=== PATIENT | female | born 1960 | race Caucasian/White ===

== ENCOUNTER 2018-04-04 17:43 | Emergency (ER) | payer MEDICAID ==
[~2018-04-04] VITALS: Ht 157.5 cm; Wt 105.2 kg
[~2018-04-04 17:43] MED LIST: CYCL-259 PO; ENAL20TA PO; HYDR25TA6 PO; INSU100C SQ-INSULIN; INSU100V8 SQ; LEVO112T4 PO; LORA10TA3 PO; OMEP20CA9 PO
[2018-04-04 17:46] VITALS: BP 167/78
[2018-04-04 18:11] LABS: BASOPHILS # (AUTO) 0.07 x10^3/uL (0-0.1); BASOPHILS % (AUTO) 1 % (0-1); EOSINOPHILS % (AUTO) 7 % (1-7); LYMPHOCYTES # (AUTO) 1.51 x10^3/uL (1-3.4); LYMPHOCYTES % (AUTO) 20 % (22-44); MD NO; MEAN CORPUSCULAR HEMOGLOBIN 31.3 pg (27.0-34.8); MEAN CORPUSCULAR VOLUME 92.2 fL (80-100); MEAN PLATELET VOLUME 7.2 fL (7.4-10.4); MONOCYTES # (AUTO) 0.88 x10^3/uL (0.2-0.8); MONOCYTES % (AUTO) 12 % (2-9); NEUTROPHILS # (AUTO) 4.56 x10^3/uL (1.8-6.8); NEUTROPHILS % (AUTO) 61 % (42-75); PLATELET COUNT 186 x10^3/uL (130-400); RED BLOOD COUNT 4.91 x10^6/uL (3.82-5.3); RED CELL DISTRIBUTION WIDTH 15.1 % (9.6-15.2)
[2018-04-04 18:23] LABS: ALBUMIN 3.4 g/dL (3.4-5.0); ANION GAP 7 mmol/L (5-15); CALCIUM 8.9 mg/dL (8.5-10.1); CHLORIDE 95 mmol/L (98-107); CREATININE 1.34 mg/dL (0.55-1.02)
[2018-04-04 19:15] LABS: ALBUMIN 3.5 g/dL (3.4-5.0); BILIRUBIN, DIRECT 0.2 mg/dL (0.1-0.2)
[2018-04-04 19:18] LABS: BILIRUBIN,INDIRECT 0.6 mg/dL (0.0-2.0); BILIRUBIN,TOTAL 0.8 mg/dL (0.2-1.0); TOTAL PROTEIN 7.5 g/dL (6.4-8.2)
[2018-04-04] MEDS ORDERED: LIDODERM 5% PATCH TD ONE (19:30)
== END 2018-04-04 19:29 | disposition home or self-care (01) ==
LOC: ED 19:23
DX: M79.662 Pain in left lower leg (principal); L50.1 Idiopathic urticaria; E87.1 Hypo-osmolality and hyponatremia; J44.9 Chronic obstructive pulmonary disease, unspecified; E11.9 Type 2 diabetes mellitus without complications; E03.9 Hypothyroidism, unspecified; F17.200 Nicotine dependence, unspecified, uncomplicated; Z88.0 Allergy status to penicillin; Z90.710 Acquired absence of both cervix and uterus
CPT/HCPCS: 36415; 80048; 80076; 82040; 83880; 85025; 99285

== ENCOUNTER 2018-07-17 11:21 | Emergency (ER) | payer MEDICAID ==
[~2018-07-17] VITALS: Ht 157.5 cm; Wt 69.5 kg
[2018-07-17] MEDS ORDERED: PHENAZOPYRIDINE 200 MG TABLET PO ONE (13:00)
[2018-07-17] MEDS ORDERED: PHENAZOPYRIDINE 200 MG TABLET ONE (13:11)
[2018-07-17 13:29] LABS: MICROSCOPIC AUTO
[2018-07-17 13:30] LABS: CULTURE INDICATED? YES
[2018-07-17 14:07] VITALS: BP 148/72
== END 2018-07-17 14:09 | disposition home or self-care (01) ==
LOC: ED 13:27
DX: N30.01 Acute cystitis with hematuria (principal); J44.9 Chronic obstructive pulmonary disease, unspecified; I12.9 Hypertensive chronic kidney disease with stage 1 through stage 4 chronic kidney disease, or unspecified chronic kidney disease; N18.9 Chronic kidney disease, unspecified; E11.22 Type 2 diabetes mellitus with diabetic chronic kidney disease
CPT/HCPCS: 81001; 87077; 87086; 87186; 99283

== ENCOUNTER 2018-10-28 21:31 | Emergency (ER) | payer MEDICAID ==
[~2018-10-28] VITALS: Ht 157.5 cm; Wt 104.7 kg
[~2018-10-28 21:31] MED LIST changes: +LORA-247 PO; -LORA10TA3 PO
[2018-10-28 22:14] LABS: MICROSCOPIC AUTO
[2018-10-28 22:19] LABS: CULTURE INDICATED? YES
--- NOTE | 2018-10-28 23:34 | NUR ---
BLOATED X 3 DAYS, SWELLING IN RIGHT LOWER EXTREMITY X 6 MONTHS. PAIN IN BILAT FLANKS. VSS STABLE
[2018-10-28] MEDS ORDERED: GABA300C10 PO (23:46)
[2018-10-28] MEDS ORDERED: TIOT18CA INH (23:46)
[2018-10-28] MEDS ORDERED: OXYC-307 PO (23:46)
[2018-10-28] MEDS ORDERED: METH500T7 PO (23:46)
[2018-10-28] MEDS ORDERED: MOME13HF2 PO (23:46)
[2018-10-28] MEDS ORDERED: AMLO10TA8 PO (23:46)
[2018-10-28] MEDS ORDERED: ATOR10TA9 PO (23:46)
[2018-10-29 00:29] LABS: BASOPHILS # (AUTO) 0.03 x10^3/uL (0-0.1); BASOPHILS % (AUTO) 0 % (0-1); EOSINOPHILS # (AUTO) 0.43 x10^3/uL (0-0.4); EOSINOPHILS % (AUTO) 7 % (1-7); LYMPHOCYTES % (AUTO) 19 % (22-44); MD NO; MEAN CORPUSCULAR HEMOGLOBIN 31.7 pg (27.0-34.8); MEAN CORPUSCULAR HGB CONC 34.3 g/dL (32.4-35.8); MEAN CORPUSCULAR VOLUME 92.6 fL (80-100); MEAN PLATELET VOLUME 6.3 fL (7.4-10.4); MONOCYTES # (AUTO) 0.51 x10^3/uL (0.2-0.8); MONOCYTES % (AUTO) 8 % (2-9); NEUTROPHILS # (AUTO) 4.42 x10^3/uL (1.8-6.8); NEUTROPHILS % (AUTO) 66 % (42-75); PLATELET COUNT 184 x10^3/uL (130-400); RED BLOOD COUNT 4.42 x10^6/uL (3.82-5.3); RED CELL DISTRIBUTION WIDTH 13.6 % (9.6-15.2)
[2018-10-29 00:40] LABS: INTERNATIONAL NORMALIZED RATIO 0.92 (0.93-1.1); PROTHROMBIN TIME 9.7 Seconds (9.6-11.5)
[2018-10-29 00:41] LABS: ALBUMIN 3.3 g/dL (3.4-5.0); ANION GAP 8 mmol/L (5-15); CALCIUM 9.1 mg/dL (8.5-10.1); CHLORIDE 93 mmol/L (98-107); CREATININE 1.11 mg/dL (0.55-1.02)
[2018-10-29 00:46] LABS: ALANINE AMINOTRANSFERASE 19 U/L (12-78); ALKALINE PHOSPHATASE 69 U/L (45-117); BILIRUBIN,TOTAL 0.4 mg/dL (0.2-1.0); TOTAL PROTEIN 6.8 g/dL (6.4-8.2)
[2018-10-29] MEDS ORDERED: CEFDINIR 300 MG CAPSULE PO ONE (01:00)
[2018-10-29] MEDS ORDERED: CEFDINIR 300 MG CAPSULE ONE ×2 (01:29→01:34)
[2018-10-29 01:37] VITALS: BP 155/63
--- NOTE | 2018-10-29 01:40 | NUR ---
PT MEDICATED PER ORDERS. D/C INSTRUCTIONS, MEDS, & F/U APPT RV'WD WITH PT, SHE VERBALIZES UNDERSTANDING. RX GIVEN X2. PT AMBULATED OUT OF ED WITH WITHOUT DIFFICULTY.
== END 2018-10-29 01:43 | disposition home or self-care (01) ==
LOC: ED 23:46
DX: N39.0 Urinary tract infection, site not specified (principal); E87.1 Hypo-osmolality and hyponatremia; J44.9 Chronic obstructive pulmonary disease, unspecified; E11.22 Type 2 diabetes mellitus with diabetic chronic kidney disease; I12.9 Hypertensive chronic kidney disease with stage 1 through stage 4 chronic kidney disease, or unspecified chronic kidney disease; N18.3 Chronic kidney disease, stage 3 (moderate); F17.210 Nicotine dependence, cigarettes, uncomplicated; Z90.710 Acquired absence of both cervix and uterus
CPT/HCPCS: 36415; 74022; 80053; 80307; 81001; 83690; 83880; 85025; 85610; 85730; 87077; 87086; 87186; 93970; 99284

== ENCOUNTER 2020-09-25 16:59 | Inpatient (IN) | payer MEDICAID ==
[~2020-09-25] VITALS: Ht 157.5 cm; Wt 90.5 kg
[~2020-09-25 16:59] MED LIST changes: +AMLO-211 PO; +ATOR10TA9 PO; -CYCL-259 PO; +CYCL10TA2 PO; -ENAL20TA PO; +ENAL20TA9 PO; +GABA300C10 PO; +METH-639 PO; +MOME13HF2 PO; +OXYC-380 PO; +TIOT18CA INH
--- NOTE | 2020-09-25 17:19 | NUR ---
Pt reports she was admitted to [facility] in May d/t abdnormal sodium levels. Pt reports that for the past few weeks she has been having symptoms similar to what she had in May prior to being admitted including nauseau, fatigue, and dizziness. Pt reports she drinks 1 cup of coffee per day, drinks alcohol a few times per week. Pt reports she can hardly walk d/t dizziness. Denies fevers, vomitting, diarrhea. MD at bedside. RN at bedside. Pt reports her kidney doctor put her on 40mg furosemide 2x/day and potassium daily. Pt reports she smokes 1 pack cigarrettes per day. Hx stage 3 kidney disease, type I diabetic, COPD (wears oxygen at night), back surgery, thyroidectomy, breast infections and surgeries, hysterectomy, bladder lift.
[2020-09-25] MEDS ORDERED: SODIUM CHLORIDE FLUSH 10ML SYR IVF ONE (17:30)
--- NOTE | 2020-09-25 18:01 | NUR ---
IV started, labs drawn.
[2020-09-25 18:07] LABS: BASOPHILS % (AUTO) 2 % (0-1); EOSINOPHILS % (AUTO) 4 % (1-7); LYMPHOCYTES % (AUTO) 16 % (22-44); MEAN CORPUSCULAR HEMOGLOBIN 31.3 pg (27.0-34.8); MEAN CORPUSCULAR HGB CONC 35.1 g/dL (32.4-35.8); MONOCYTES % (AUTO) 12 % (2-9); NEUTROPHILS % (AUTO) 67 % (42-75); PLATELET COUNT 269 x10^3/uL (130-400); RED BLOOD COUNT 4.84 x10^6/uL (3.82-5.3); RED CELL DISTRIBUTION WIDTH 13.5 % (9.6-15.2)
[2020-09-25 18:19] LABS: ALANINE AMINOTRANSFERASE 18 U/L (12-78); ALBUMIN 2.9 g/dL (3.4-5.0); ANION GAP 11 mmol/L (5-15); CALCIUM 8.6 mg/dL (8.5-10.1); CHLORIDE 90 mmol/L (98-107); CREATININE 1.12 mg/dL (0.55-1.02)
[2020-09-25 18:22] LABS: ALKALINE PHOSPHATASE 87 U/L (45-117); BILIRUBIN,TOTAL 0.3 mg/dL (0.2-1.0)
[2020-09-25 18:26] LABS: MD SCAN
--- NOTE | 2020-09-25 18:43 | NUR ---
Pt ambulating to bathroom in room, 1 person assist, still feels very dizzy.
--- NOTE | 2020-09-25 19:21 | NUR ---
UA sent to lab.
--- NOTE | 2020-09-25 19:44 | NUR ---
RN at bedside, updating pt on plan to admit pt.
[2020-09-25 19:45] LABS: MICROSCOPIC INDICATED
--- NOTE | 2020-09-25 19:55 | NUR ---
Diet order in- provided pt some dinner.
[2020-09-25] MEDS ORDERED: CEFTRIAXONE PMX 1GM/50ML 50 ML IV ONE (20:30)
[2020-09-25] MEDS ORDERED: CEFTRIAXONE PMX 1GM/50ML 50 ML ONE (20:55)
--- NOTE | 2020-09-25 20:58 | NUR ---
Provider confirms that blood cultures not needed. Rocephin started.
--- NOTE | 2020-09-25 21:18 | NUR ---
Report given to GREGG Rodriguez.
[2020-09-25] MEDS ORDERED: ALBUTEROL/IPRATROPIUM 2.5MG/0.5MG, 3 ML ONE (21:20)
--- NOTE | 2020-09-25 21:24 | NUR ---
Hospitalist at bedside.
--- NOTE | 2020-09-25 21:26 | NUR ---
TASK RN: DIONNE PROVIDED PER EMAR
[2020-09-25] MEDS ORDERED: ALBUTEROL/IPRATROPIUM 2.5MG/0.5MG, 3 ML NEB ONE (21:30)
[2020-09-25 22:19] VITALS: BP 133/70
[2020-09-25] MEDS ORDERED: ACETAMINOPHEN 325 MG TABLET PO PRN (22:30)
[2020-09-25] MEDS ORDERED: ONDANSETRON 2MG/ML, 2ML IVPush PRN (22:30)
[2020-09-25] MEDS ORDERED: MELATONIN 5 MG TABLET PO PRN (22:30)
[2020-09-25] MEDS ORDERED: hydrALAzine 20 MG/ML, 1ML IVPush PRN (22:30)
[2020-09-25] MEDS ORDERED: DOCUSATE 100 MG CAPSULE PO PRN (22:30)
[2020-09-25] MEDS ORDERED: MAGNESIUM SULFATE PMX 4GM/100M 100 ML IVPB ONE (22:30)
[2020-09-25] MEDS ORDERED: NICOTINE 21 MG/24 HR PATCH.TD24 TD ONE (22:30)
[2020-09-25] MEDS: HEPARIN 5,000 UNITS/ML, 1ML SQ SCH (23:06)
[2020-09-25] MEDS: SODIUM CHLORIDE 0.9% 1,000 ML IV SCH (23:07)
[2020-09-26 00:46] VITALS: BP 119/67
[2020-09-26 00:47] LABS: ANION GAP 9 mmol/L (5-15); CALCIUM 8.2 mg/dL (8.5-10.1); CHLORIDE 91 mmol/L (98-107); CREATININE 1.24 mg/dL (0.55-1.02)
[2020-09-26] MEDS: METHOCARBAMOL 500 MG TABLET PO SCH ×4 (01:19→20:39)
[2020-09-26] MEDS: ATORVASTATIN 10 MG TABLET PO SCH ×2 (01:19→20:39)
[2020-09-26] MEDS: GABAPENTIN 300 MG CAPSULE PO SCH ×4 (01:19→20:39)
[2020-09-26] MEDS: OXYcodone/APAP 10/325MG TABLET PO SCH ×5 (01:19→20:40)
[2020-09-26] MEDS ORDERED: DEXTROSE 50%, 50ML SYRINGE IVPush PRN (02:00)
[2020-09-26] MEDS ORDERED: GLUCAGON 1 MG IM PRN (02:00)
[2020-09-26] MEDS ORDERED: DEXTROSE 4 GM TAB.CHEW PO PRN (02:00)
[2020-09-26] MEDS: INSULIN LISPRO 100 UNITS/ML, PEN SQ-INSULIN SCH ×5 (03:05→20:48)
[2020-09-26 05:15] LABS: BASOPHILS % (AUTO) 1 % (0-1); EOSINOPHILS % (AUTO) 2 % (1-7); LYMPHOCYTES % (AUTO) 12 % (22-44); MEAN CORPUSCULAR HEMOGLOBIN 30.5 pg (27.0-34.8); MEAN PLATELET VOLUME 7.1 fL (7.4-10.4); MONOCYTES % (AUTO) 13 % (2-9); NEUTROPHILS % (AUTO) 72 % (42-75); PLATELET COUNT 219 x10^3/uL (130-400); RED CELL DISTRIBUTION WIDTH 13.5 % (9.6-15.2)
[2020-09-26 05:17] LABS: MD NO
[2020-09-26 05:27] LABS: ANION GAP 9 mmol/L (5-15); CALCIUM 7.9 mg/dL (8.5-10.1); CHLORIDE 93 mmol/L (98-107)
[2020-09-26 05:40] LABS: CREATININE 1.17 mg/dL (0.55-1.02); FREE T4 (FREE THYROXINE) 1.29 ng/dL (0.76-1.46)
[2020-09-26] MEDS: LEVOTHYROXINE 175 MCG TABLET PO SCH (05:42)
[2020-09-26] MEDS: HEPARIN 5,000 UNITS/ML, 1ML SQ SCH ×3 (05:43→22:07)
[2020-09-26] MEDS: SODIUM CHLORIDE 0.9% 1,000 ML IV SCH ×2 (06:40→22:07)
[2020-09-26 07:01] VITALS: BP 145/65
[2020-09-26] MEDS ORDERED: AMLODIPINE 10 MG TAB PO SCH (09:00)
[2020-09-26] MEDS ORDERED: MOMETASONE PO SCH (09:00)
[2020-09-26] MEDS ORDERED: HYDROCHLOROTHIAZIDE 25 MG TABLET PO SCH (09:00)
[2020-09-26] MEDS ORDERED: FORMOTEROL PO SCH (09:00)
[2020-09-26] MEDS ORDERED: [UNRECOGNIZED DRUG - OTHER] PO SCH (09:00)
[2020-09-26 09:06] LABS: CHLORIDE,URINE RANDOM 14 mmol/L; POTASSIUM,URINE RANDOM 26 mmol/L; SODIUM,URINE RANDOM 32 mmol/L
[2020-09-26] MEDS ORDERED: ALBUTEROL HFA 90 MCG/SPRAY INH PRN (09:30)
[2020-09-26] MEDS: LORATADINE 10 MG TABLET PO SCH (09:36)
[2020-09-26] MEDS: ENALAPRIL 20MG TABLET PO SCH ×2 (09:36→20:40)
[2020-09-26] MEDS: OMEPRAZOLE 20 MG CAPSULE.DR PO SCH (09:36)
[2020-09-26] MEDS: FLUTICASONE/VILANTEROL 100-25MCG/INH INH SCH (09:37)
[2020-09-26] MEDS: TIOTROPIUM BROMIDE 18 MCG/INH INH SCH (09:37)
[2020-09-26] MEDS: SODIUM CHLORIDE FLUSH 10ML SYR IVF SCH ×2 (09:38→20:46)
[2020-09-26 12:02] VITALS: BP 146/74
[2020-09-26 15:44] LABS: ANION GAP 9 mmol/L (5-15); CALCIUM 8.3 mg/dL (8.5-10.1); CHLORIDE 94 mmol/L (98-107); CREATININE 1.31 mg/dL (0.55-1.02)
[2020-09-26 19:53] VITALS: BP 113/69
[2020-09-26] MEDS ORDERED: CEFTRIAXONE PMX 1GM/50ML 50 ML IV SCH (20:30)
[2020-09-26] MEDS ORDERED: INSULIN GLARGINE 100 UNITS/ML, PEN SQ-INSULIN SCH (21:00)
[2020-09-26] MEDS: HYDROCORTISONE CRM 0.5%, 30GM TP SCH (22:07)
[2020-09-27 01:43] VITALS: BP 126/69
[2020-09-27] MEDS: LEVOTHYROXINE 175 MCG TABLET PO SCH (05:55)
[2020-09-27] MEDS: OXYcodone/APAP 10/325MG TABLET PO SCH ×2 (05:56→11:20)
[2020-09-27 05:58] LABS: ANION GAP 6 mmol/L (5-15); CALCIUM 8.4 mg/dL (8.5-10.1); CHLORIDE 97 mmol/L (98-107); CREATININE 1.16 mg/dL (0.55-1.02)
[2020-09-27] MEDS: HEPARIN 5,000 UNITS/ML, 1ML SQ SCH (05:58)
[2020-09-27] MEDS: INSULIN LISPRO 100 UNITS/ML, PEN SQ-INSULIN SCH ×2 (07:00→11:46)
[2020-09-27 07:16] VITALS: BP 144/69
[2020-09-27] MEDS: LORATADINE 10 MG TABLET PO SCH (08:39)
[2020-09-27] MEDS: METHOCARBAMOL 500 MG TABLET PO SCH (08:40)
[2020-09-27] MEDS: ENALAPRIL 20MG TABLET PO SCH (08:40)
[2020-09-27] MEDS: GABAPENTIN 300 MG CAPSULE PO SCH (08:40)
[2020-09-27] MEDS: OMEPRAZOLE 20 MG CAPSULE.DR PO SCH (08:40)
[2020-09-27] MEDS: HYDROCORTISONE CRM 0.5%, 30GM TP SCH (08:41)
[2020-09-27] MEDS: SODIUM CHLORIDE FLUSH 10ML SYR IVF SCH (08:44)
[2020-09-27] MEDS ORDERED: FURO40TA6 PO ×2 (08:53→10:50)
[2020-09-27] MEDS: FLUTICASONE/VILANTEROL 100-25MCG/INH INH SCH (10:10)
[2020-09-27] MEDS: TIOTROPIUM BROMIDE 18 MCG/INH INH SCH (10:10)
[2020-09-27] MEDS ORDERED: CEFD300C37 PO (10:50)
[2020-09-27 12:13] VITALS: BP 157/79
[2020-09-27] MEDS: SODIUM CHLORIDE 0.9% 1,000 ML IV SCH (12:32)
== END 2020-09-27 13:20 | disposition home or self-care (01) | DRG 463 ==
LOC: ED 19:15 → EDIP 20:42 → 4EST 21:52 → DCLOUNGE 09-27 13:04
PROVIDERS: ADMIT Internal Medicine; ATTEND Internal Medicine
DX: N39.0 Urinary tract infection, site not specified (principal); E87.1 Hypo-osmolality and hyponatremia; B95.4 Other streptococcus as the cause of diseases classified elsewhere; E10.22 Type 1 diabetes mellitus with diabetic chronic kidney disease; E78.5 Hyperlipidemia, unspecified; E83.42 Hypomagnesemia; E03.9 Hypothyroidism, unspecified; I12.9 Hypertensive chronic kidney disease with stage 1 through stage 4 chronic kidney disease, or unspecified chronic kidney disease; J44.9 Chronic obstructive pulmonary disease, unspecified; J96.10 Chronic respiratory failure, unspecified whether with hypoxia or hypercapnia; N18.30 Chronic kidney disease, stage 3 unspecified; Z79.4 Long term (current) use of insulin; Z81.8 Family history of other mental and behavioral disorders; Z82.5 Family history of asthma and other chronic lower respiratory diseases; Z87.891 Personal history of nicotine dependence; Z88.0 Allergy status to penicillin; Z90.710 Acquired absence of both cervix and uterus; Z91.19 Patient's noncompliance with other medical treatment and regimen; Z99.81 Dependence on supplemental oxygen; Z79.899 Other long term (current) drug therapy
CPT/HCPCS: 36415; 80048; 80053; 81001; 82436; 82962; 83036; 83735; 83930; 83935; 84100; 84133; 84300; 84439; 84443; 85025; 87086; 87147; 93005; 94640; 96365; 96375; 99285; G0378; J0696; J1644; J1815; J3475; J7030

== ENCOUNTER 2021-01-31 22:06 | Emergency (ER) | payer MEDICAID ==
[~2021-01-31] VITALS: Ht 157.5 cm; Wt 85.0 kg
[~2021-01-31 22:06] MED LIST changes: +CEFD300C37 PO; +FURO40TA6 PO
[2021-01-31 23:04] LABS: BASOPHILS % (AUTO) 2 % (0-1); EOSINOPHILS % (AUTO) 3 % (1-7); LYMPHOCYTES % (AUTO) 15 % (22-44); MEAN CORPUSCULAR HEMOGLOBIN 30.8 pg (27.0-34.8); MEAN CORPUSCULAR HGB CONC 34.1 g/dL (32.4-35.8); MEAN PLATELET VOLUME 7.9 fL (7.4-10.4); MONOCYTES % (AUTO) 14 % (2-9); NEUTROPHILS % (AUTO) 67 % (42-75); PLATELET COUNT 338 x10^3/uL (130-400); RED BLOOD COUNT 4.15 x10^6/uL (3.82-5.3); RED CELL DISTRIBUTION WIDTH 13.7 % (9.6-15.2)
[2021-01-31 23:16] LABS: ANION GAP 5 mmol/L (5-15); CALCIUM 9.2 mg/dL (8.5-10.1); CHLORIDE 93 mmol/L (98-107)
[2021-01-31 23:19] LABS: ALANINE AMINOTRANSFERASE 20 U/L (12-78); ALKALINE PHOSPHATASE 77 U/L (45-117); BILIRUBIN,TOTAL 0.4 mg/dL (0.2-1.0); CREATININE 1.57 mg/dL (0.55-1.02); TOTAL PROTEIN 7.4 g/dL (6.4-8.2)
[2021-02-01 00:44] LABS: MICROSCOPIC AUTO
--- NOTE | 2021-02-01 00:55 | NUR ---
rubber grinder note: Pt to room from lobby.
[2021-02-01] MEDS ORDERED: CEFDINIR 300 MG CAPSULE PO ONE (01:30)
[2021-02-01] MEDS ORDERED: CEFDINIR 300 MG CAPSULE ONE (01:57)
[2021-02-01] MEDS ORDERED: HYDROcodone/APAP 5/325 TABLET ONE (02:00)
[2021-02-01] MEDS ORDERED: HYDROcodone/APAP 5/325 TABLET PO ONE (02:00)
[2021-02-01 02:02] VITALS: BP 159/81
--- NOTE | 2021-02-01 03:12 | NUR ---
Break RN: confirmed with ERP that no tx to be provided for hyponatremia as it is chronic for patient. Discharge instructions given. All questions and concerns addressed. Patient wheeled out in a wheelchair. Belongings with patient.
== END 2021-02-01 03:14 | disposition home or self-care (01) ==
LOC: ED 22:36
DX: N30.00 Acute cystitis without hematuria (principal); E87.1 Hypo-osmolality and hyponatremia; F17.210 Nicotine dependence, cigarettes, uncomplicated; I10 Essential (primary) hypertension; E11.9 Type 2 diabetes mellitus without complications; E03.9 Hypothyroidism, unspecified; Z90.49 Acquired absence of other specified parts of digestive tract
CPT/HCPCS: 36415; 80053; 81001; 85025; 87086; 99406

== ENCOUNTER 2021-03-14 08:57 | Inpatient (IN) | payer MEDICAID ==
[~2021-03-14] VITALS: Ht 157.5 cm; Wt 90.0 kg
--- NOTE | 2021-03-14 09:11 | NUR ---
PT BIBA. PER EMS PT IS HERE FOR COPD EXACERBATION X4DAYS. PT HAS HX OF COPD, HTN, DMT1. PT HAS NOT HAD COVID VAX. PT ALSO REPORTS HAVING DRY, NON PRODUCTIVE COUGH. PT DENIES CHILLS OR FEVER. PER EMS SHE GOT ALBUTEROL TREATMENT X1, DUONEB TREATMENT X1, AND 125MG SOLUMEDROL IN ROUTE TO ED. PT STATES SHE NORMALLY IS ON 2.5L O2 NC, PT IS ON 2L NC AT THIS TIME WITH O2 SAT OF 94%. PT HAS RESPIRATIONS OF 26, LABORED BREATHING THROUGH PURSED LIPS. PT ALSO HAS EXPIRATORY WHEEZING THROUGHOUT LUNGS. PT RESTING IN [place], MONITORING IN PLACE, EKG DONE UPON ARRIVAL, EDMD AT BEDSIDE FOR EVAL, WCTM.
[2021-03-14] MEDS ORDERED: ALBUTEROL/IPRATROPIUM 2.5MG/0.5MG, 3 ML NPPB PRN (09:30)
[2021-03-14] MEDS ORDERED: SODIUM CHLORIDE FLUSH 10ML SYR IVF ONE (09:30)
[2021-03-14] MEDS ORDERED: FUROSEMIDE 40 MG/4 ML IVPush ONE (09:30)
[2021-03-14] MEDS ORDERED: FUROSEMIDE 40 MG/4 ML ONE (09:42)
[2021-03-14] MEDS ORDERED: ALBUTEROL/IPRATROPIUM 2.5MG/0.5MG, 3 ML ONE (09:51)
[2021-03-14 09:57] LABS: BASOPHILS % (AUTO) 1 % (0-1); EOSINOPHILS % (AUTO) 1 % (1-7); LYMPHOCYTES % (AUTO) 8 % (22-44); MEAN CORPUSCULAR HEMOGLOBIN 29.5 pg (27.0-34.8); MEAN PLATELET VOLUME 6.4 fL (7.4-10.4); MONOCYTES % (AUTO) 8 % (2-9); NEUTROPHILS % (AUTO) 82 % (42-75); PLATELET COUNT 405 x10^3/uL (130-400); RED BLOOD COUNT 3.94 x10^6/uL (3.82-5.3); RED CELL DISTRIBUTION WIDTH 13.8 % (9.6-15.2)
[2021-03-14] MEDS ORDERED: CEFTRIAXONE 1,000 MG in DEXTROSE 5% 50 ML IVPB ONE (10:00)
[2021-03-14] MEDS ORDERED: MORPHINE SULFATE 4 MG/ML, 1ML IVPush ONE (10:00)
[2021-03-14] MEDS ORDERED: MORPHINE SULFATE 4 MG/ML, 1ML ONE (10:07)
[2021-03-14 10:14] LABS: ALANINE AMINOTRANSFERASE 22 U/L (12-78); ALBUMIN 2.9 g/dL (3.4-5.0); ANION GAP 8 mmol/L (5-15); CHLORIDE 84 mmol/L (98-107); CREATININE 1.22 mg/dL (0.55-1.02)
[2021-03-14 10:18] LABS: ALKALINE PHOSPHATASE 105 U/L (45-117); BILIRUBIN,TOTAL 0.5 mg/dL (0.2-1.0); TROPONIN I < 0.015 ng/mL (0.000-0.045)
[2021-03-14] MEDS ORDERED: SODIUM CHLORIDE 0.9% 1,000 ML IV ONE (11:00)
--- NOTE | 2021-03-14 11:11 | NUR ---
PT TO CT AT THIS TIME VIA [facility].
[2021-03-14] MEDS ORDERED: OMNIPAQUE 350 MG/ML, 75ML BOTTLE ONE (11:22)
[2021-03-14] MEDS ORDERED: OXYcodone/APAP 10/325MG TABLET ONE (13:50)
[2021-03-14] MEDS: OXYcodone/APAP 10/325MG TABLET PO SCH ×2 (13:53→21:03)
[2021-03-14] MEDS ORDERED: DEXAMETHASONE 4 MG TABLET ONE (14:36)
[2021-03-14] MEDS: DEXAMETHASONE 4 MG TABLET PO SCH ×2 (14:38→19:15)
[2021-03-14 16:15] VITALS: BP 166/81
[2021-03-14] MEDS: GABAPENTIN 300 MG CAPSULE PO SCH ×2 (16:23→21:02)
[2021-03-14] MEDS: METHOCARBAMOL 500 MG TABLET PO SCH ×2 (16:23→21:07)
[2021-03-14] MEDS: FUROSEMIDE 40 MG/4 ML IV SCH (16:24)
[2021-03-14] MEDS: ENOXAPARIN 40 MG/0.4 ML SQ SCH (16:25)
[2021-03-14] MEDS ORDERED: POLYETHYLENE GLYCOL 17 GM PACKET PO PRN (16:30)
[2021-03-14] MEDS ORDERED: TRAZODONE 50MG TABLET PO PRN (16:30)
[2021-03-14] MEDS ORDERED: MELATONIN 5 MG TABLET PO PRN (16:30)
[2021-03-14] MEDS: ACETAMINOPHEN 325 MG TABLET PO PRN (19:15)
[2021-03-14] MEDS: LORazepam 1MG TABLET PO PRN (19:28)
[2021-03-14] MEDS ORDERED: INSULIN LISPRO 100 UNIT/ML, 3ML VIAL SQ-INSULIN STA (20:57)
[2021-03-14] MEDS: ENALAPRIL 20MG TABLET PO SCH (21:02)
[2021-03-14] MEDS: NICOTINE 21 MG/24 HR PATCH.TD24 TD SCH (21:03)
[2021-03-14] MEDS: ATORVASTATIN 10 MG TABLET PO SCH (21:03)
[2021-03-14] MEDS: GUAIFENESIN ER 600 MG TABLET PO SCH (21:03)
[2021-03-14] MEDS: INSULIN GLARGINE 100 UNITS/ML, PEN SQ-INSULIN SCH (21:35)
[2021-03-15 00:04] VITALS: BP 131/72
[2021-03-15] MEDS: ONDANSETRON ODT 4 MG PO PRN ×3 (00:33→21:24)
[2021-03-15] MEDS: DEXAMETHASONE 4 MG TABLET PO SCH ×4 (02:13→21:23)
[2021-03-15] MEDS: LEVOTHYROXINE 112 MCG TABLET PO SCH (05:11)
[2021-03-15] MEDS: OMEPRAZOLE 20 MG CAPSULE.DR PO SCH (05:11)
[2021-03-15] MEDS: OXYcodone/APAP 10/325MG TABLET PO SCH ×4 (05:12→21:24)
[2021-03-15 06:15] LABS: CALCIUM 8.9 mg/dL (8.5-10.1); CHLORIDE 81 mmol/L (98-107); CREATININE 1.38 mg/dL (0.55-1.02)
[2021-03-15 06:22] LABS: ANION GAP 12 mmol/L (5-15)
[2021-03-15 07:46] VITALS: BP 183/76
[2021-03-15] MEDS: FUROSEMIDE 40 MG/4 ML IV SCH ×2 (07:53→16:48)
[2021-03-15] MEDS: METHOCARBAMOL 500 MG TABLET PO SCH ×3 (09:33→21:24)
[2021-03-15] MEDS: LORATADINE 10 MG TABLET PO SCH (09:43)
[2021-03-15] MEDS: SENNA/DOCUSATE TABLET PO SCH (09:43)
[2021-03-15] MEDS: GUAIFENESIN ER 600 MG TABLET PO SCH ×2 (09:43→21:23)
[2021-03-15] MEDS: GABAPENTIN 300 MG CAPSULE PO SCH ×3 (09:43→21:23)
[2021-03-15] MEDS: ENALAPRIL 20MG TABLET PO SCH ×2 (09:43→21:23)
[2021-03-15] MEDS: FLUTICASONE/VILANTEROL 100-25MCG/INH INH SCH (09:47)
[2021-03-15] MEDS: TIOTROPIUM BROMIDE 18 MCG/INH INH SCH (10:42)
[2021-03-15] MEDS: INSULIN LISPRO 100 UNITS/ML, PEN SQ-INSULIN SCH ×3 (11:35→21:25)
[2021-03-15 13:04] VITALS: BP 160/71
[2021-03-15] MEDS: ENOXAPARIN 40 MG/0.4 ML SQ SCH (16:49)
[2021-03-15 19:04] VITALS: BP 170/77
[2021-03-15] MEDS: LORazepam 1MG TABLET PO PRN (20:17)
[2021-03-15] MEDS: ATORVASTATIN 10 MG TABLET PO SCH (21:24)
[2021-03-15] MEDS: INSULIN GLARGINE 100 UNITS/ML, PEN SQ-INSULIN SCH (21:25)
[2021-03-15] MEDS: NICOTINE 21 MG/24 HR PATCH.TD24 TD SCH (21:25)
[2021-03-15] MEDS ORDERED: SODIUM CHLORIDE 0.9%, 500ML IVBOLUS ONE (23:00)
[2021-03-15] MEDS: ACETAMINOPHEN 325 MG TABLET PO PRN (23:32)
[2021-03-16] VITALS: BP 180/81
[2021-03-16] MEDS ORDERED: INSULIN LISPRO 100 UNIT/ML, 3ML VIAL SQ-INSULIN ONE (00:30)
[2021-03-16] MEDS: DEXAMETHASONE 4 MG TABLET PO SCH ×3 (02:06→14:11)
[2021-03-16] MEDS: OXYcodone/APAP 10/325MG TABLET PO SCH ×3 (05:06→16:19)
[2021-03-16] MEDS: OMEPRAZOLE 20 MG CAPSULE.DR PO SCH (05:07)
[2021-03-16] MEDS: LEVOTHYROXINE 112 MCG TABLET PO SCH (05:07)
[2021-03-16] MEDS: INSULIN LISPRO 100 UNITS/ML, PEN SQ-INSULIN SCH ×3 (07:00→16:17)
[2021-03-16 07:48] VITALS: BP 138/84
[2021-03-16] MEDS: METHOCARBAMOL 500 MG TABLET PO SCH ×2 (08:24→16:19)
[2021-03-16] MEDS: GABAPENTIN 300 MG CAPSULE PO SCH ×2 (08:24→16:19)
[2021-03-16] MEDS: LORATADINE 10 MG TABLET PO SCH (08:25)
[2021-03-16] MEDS: GUAIFENESIN ER 600 MG TABLET PO SCH (08:25)
[2021-03-16] MEDS: ENALAPRIL 20MG TABLET PO SCH (08:25)
[2021-03-16] MEDS: SENNA/DOCUSATE TABLET PO SCH (08:25)
[2021-03-16] MEDS: FUROSEMIDE 40 MG/4 ML IV SCH ×2 (08:26→18:05)
[2021-03-16] MEDS: ONDANSETRON ODT 4 MG PO PRN (08:36)
[2021-03-16] MEDS: LORazepam 1MG TABLET PO PRN (08:36)
[2021-03-16] MEDS: TIOTROPIUM BROMIDE 18 MCG/INH INH SCH (08:40)
[2021-03-16] MEDS: FLUTICASONE/VILANTEROL 100-25MCG/INH INH SCH (08:40)
[2021-03-16 14:41] VITALS: BP 162/72
[2021-03-16] MEDS: ENOXAPARIN 40 MG/0.4 ML SQ SCH (16:21)
[2021-03-16] MEDS ORDERED: LORA-445 PO ×2 (16:22)
[2021-03-16] MEDS ORDERED: GUAI600T31 PO (16:22)
[2021-03-16] MEDS ORDERED: DEXA4TAB66 PO ×2 (16:22)
[2021-03-22] MEDS ORDERED: POTA20TA6 PO (09:30)
== END 2021-03-16 18:20 | disposition home or self-care (01) | DRG 139 ==
LOC: ED 09:20 → EDIP 13:03 → SUATTDRO 13:32 → 3N 15:36
PROVIDERS: ADMIT Internal Medicine; ATTEND Internal Medicine
DX: J18.0 Bronchopneumonia, unspecified organism (principal); J96.21 Acute and chronic respiratory failure with hypoxia; I50.33 Acute on chronic diastolic (congestive) heart failure; E87.1 Hypo-osmolality and hyponatremia; J44.0 Chronic obstructive pulmonary disease with (acute) lower respiratory infection; I11.0 Hypertensive heart disease with heart failure; I27.20 Pulmonary hypertension, unspecified; I31.3 Pericardial effusion (noninflammatory); F41.9 Anxiety disorder, unspecified; J44.1 Chronic obstructive pulmonary disease with (acute) exacerbation; Z20.822 Contact with and (suspected) exposure to COVID-19; I25.10 Atherosclerotic heart disease of native coronary artery without angina pectoris; E10.9 Type 1 diabetes mellitus without complications; G47.33 Obstructive sleep apnea (adult) (pediatric); E03.8 Other specified hypothyroidism; F17.210 Nicotine dependence, cigarettes, uncomplicated; Z91.19 Patient's noncompliance with other medical treatment and regimen; Z90.710 Acquired absence of both cervix and uterus; Z99.81 Dependence on supplemental oxygen; Z83.3 Family history of diabetes mellitus; Z79.4 Long term (current) use of insulin; Z82.5 Family history of asthma and other chronic lower respiratory diseases; Z91.14 Patient's other noncompliance with medication regimen
CPT/HCPCS: 36415; 71045; 71275; 80048; 80053; 82947; 82962; 83605; 83880; 84484; 85025; 85379; 87040; 93005; 93306; G0378; J0696; J1650; J1940; Q0162; Q9967; U0005; J1815; J1817; J2270; J7030; J7040; J7512; U0003

== ENCOUNTER 2021-03-20 13:16 | Inpatient (IN) | payer MEDICAID ==
[~2021-03-20] VITALS: Ht 157.5 cm; Wt 92.3 kg
[~2021-03-20 13:16] MED LIST changes: +DEXA4TAB66 PO; +GUAI600T31 PO; +LORA-445 PO; -OXYC-380 PO; +OXYC-501 PO
--- NOTE | 2021-03-20 13:20 | NUR ---
EMS report given to MD, report received from MD at bedside on arrival with technical instructor completing 12 lead EKG now. consulting sales executive completed. Call light in reach. Pt declined blanket at this time. MD states absolutely no water or ice at this time, only swabs.
[2021-03-20] MEDS ORDERED: SODIUM CHLORIDE FLUSH 10ML SYR IVF ONE (13:30)
[2021-03-20] MEDS ORDERED: ALBUTEROL/IPRATROPIUM 2.5MG/0.5MG, 3 ML NPPB PRN (13:30)
--- NOTE | 2021-03-20 14:00 | NUR ---
Report given to meal break RN and care transferred. Aware of need for RT to give NPPB tx.
[2021-03-20 14:21] LABS: BASOPHILS % (AUTO) 1 % (0-1); EOSINOPHILS % (AUTO) 0 % (1-7); LYMPHOCYTES % (AUTO) 3 % (22-44); MEAN CORPUSCULAR HGB CONC 33.9 g/dL (32.4-35.8); MEAN PLATELET VOLUME 7.7 fL (7.4-10.4); MONOCYTES % (AUTO) 7 % (2-9); NEUTROPHILS % (AUTO) 89 % (42-75); PLATELET COUNT 346 x10^3/uL (130-400); RED CELL DISTRIBUTION WIDTH 14.7 % (9.6-15.2)
[2021-03-20 14:29] LABS: ALANINE AMINOTRANSFERASE 31 U/L (12-78); ALBUMIN 2.7 g/dL (3.4-5.0); ANION GAP 5 mmol/L (5-15); CALCIUM 8.5 mg/dL (8.5-10.1); CHLORIDE 79 mmol/L (98-107); CREATININE 1.52 mg/dL (0.55-1.02)
--- NOTE | 2021-03-20 14:35 | NUR ---
Report received and care reassumed from meal break RN. Still needs covid swab performed.
--- NOTE | 2021-03-20 14:50 | NUR ---
Critical value received from lab for IX=[id number] and Cl= 79. Dr. Casarez notified at this time. also notified of pt pain and request for meds.
[2021-03-20 14:53] LABS: ACETONE, SERUM Negative (Negative)
[2021-03-20] MEDS ORDERED: MORPHINE SULFATE 4 MG/ML, 1ML IVPush PRN (15:00)
[2021-03-20] MEDS ORDERED: ONDANSETRON 2MG/ML, 2ML IVPush ONE (15:00)
[2021-03-20 15:14] LABS: BILIRUBIN,TOTAL 0.3 mg/dL (0.2-1.0)
[2021-03-20 15:15] LABS: ALKALINE PHOSPHATASE 75 U/L (45-117); TOTAL PROTEIN 6.3 g/dL (6.4-8.2); TROPONIN I < 0.015 ng/mL (0.000-0.045)
--- NOTE | 2021-03-20 15:15 | NUR ---
Pt assisted to BSC for urination with steady gait and standby assist provided.
[2021-03-20] MEDS ORDERED: MORPHINE SULFATE 4 MG/ML, 1ML ONE (15:43)
[2021-03-20] MEDS ORDERED: ONDANSETRON 2MG/ML, 2ML ONE (15:43)
--- NOTE | 2021-03-20 15:47 | NUR ---
Pt medicated for pain and nausea now. Call light in reach.
[2021-03-20] MEDS ORDERED: SODIUM CHLORIDE FLUSH 10ML SYR IVF PRN (16:00)
[2021-03-20] MEDS ORDERED: ONDANSETRON 2MG/ML, 2ML IVPush PRN (16:30)
[2021-03-20] MEDS ORDERED: ACETAMINOPHEN 325 MG TABLET PO PRN (16:30)
[2021-03-20] MEDS ORDERED: POLYETHYLENE GLYCOL 17 GM PACKET PO PRN (16:30)
--- NOTE | 2021-03-20 16:30 | NUR ---
Pt reassessed and awaiting floor room assignment.
[2021-03-20] MEDS ORDERED: ALBUTEROL SULFATE 2.5 MG/3 ML NPPB PRN (17:00)
[2021-03-20] MEDS ORDERED: INSU100I34 SQ (17:07)
[2021-03-20] MEDS ORDERED: APID (17:07)
[2021-03-20] MEDS ORDERED: AMLO-150 PO (17:07)
[2021-03-20] MEDS ORDERED: POTA99TA24 PO (17:07)
[2021-03-20] MEDS ORDERED: apidra (17:07)
--- NOTE | 2021-03-20 17:13 | NUR ---
Report given to GREGG Soto by phone at this time and pt readied for transfer to floor.
[2021-03-20] MEDS: FUROSEMIDE 40 MG/4 ML IV SCH (18:19)
[2021-03-20] MEDS: HEPARIN 5,000 UNITS/ML, 1ML SQ SCH (18:19)
[2021-03-20] MEDS: OXYcodone/APAP 10/325MG TABLET PO PRN (18:20)
[2021-03-20 18:56] VITALS: BP 149/70
[2021-03-20] MEDS: ONDANSETRON ODT 4 MG PO PRN (20:11)
[2021-03-20] MEDS: METHOCARBAMOL 500 MG TABLET PO PRN (20:11)
[2021-03-20] MEDS: INSULIN LISPRO 100 UNITS/ML, PEN SQ-INSULIN SCH (21:00)
[2021-03-20] MEDS ORDERED: BUDESONIDE 0.5 MG/2 ML INHA NPPB SCH (21:00)
[2021-03-20] MEDS ORDERED: INSULIN LISPRO 100 UNITS/ML, PEN SQ-INSULIN SCH (21:30)
[2021-03-20] MEDS ORDERED: ALBUTEROL/IPRATROPIUM 2.5MG/0.5MG, 3 ML NEB PRN (21:30)
[2021-03-20] MEDS ORDERED: BUDESONIDE 0.5 MG/2 ML INHA ONE (21:33)
[2021-03-20] MEDS: BUDESONIDE 0.5 MG/2 ML INHA NPPB SCH (21:38)
[2021-03-20] MEDS: NYSTATIN 500,000 UNITS/5 ML UDC PO SCH (21:47)
[2021-03-20] MEDS: ATORVASTATIN 10 MG TABLET PO SCH (21:47)
[2021-03-20] MEDS: INSULIN GLARGINE 100 UNITS/ML, PEN SQ-INSULIN SCH (21:49)
[2021-03-20 22:10] LABS: ANION GAP 6 mmol/L (5-15); CALCIUM 8.4 mg/dL (8.5-10.1); CHLORIDE 77 mmol/L (98-107)
[2021-03-20 23:47] LABS: MICROSCOPIC AUTO
[2021-03-21 00:47] VITALS: BP 162/68
[2021-03-21] MEDS: HEPARIN 5,000 UNITS/ML, 1ML SQ SCH ×4 (00:53→23:24)
[2021-03-21] MEDS: OXYcodone/APAP 10/325MG TABLET PO PRN ×4 (00:53→21:24)
[2021-03-21 04:36] LABS: ALANINE AMINOTRANSFERASE 36 U/L (12-78); ALBUMIN 2.6 g/dL (3.4-5.0); ANION GAP 2 mmol/L (5-15); CALCIUM 8.7 mg/dL (8.5-10.1); CHLORIDE 84 mmol/L (98-107); CREATININE 1.32 mg/dL (0.55-1.02)
[2021-03-21 04:39] LABS: BASOPHILS % (AUTO) 0 % (0-1); EOSINOPHILS % (AUTO) 1 % (1-7); LYMPHOCYTES % (AUTO) 14 % (22-44); MEAN CORPUSCULAR HEMOGLOBIN 29.7 pg (27.0-34.8); MEAN CORPUSCULAR HGB CONC 33.6 g/dL (32.4-35.8); MEAN PLATELET VOLUME 7.6 fL (7.4-10.4); MONOCYTES % (AUTO) 13 % (2-9); NEUTROPHILS % (AUTO) 72 % (42-75); PLATELET COUNT 344 x10^3/uL (130-400); RED BLOOD COUNT 3.53 x10^6/uL (3.82-5.3); RED CELL DISTRIBUTION WIDTH 14.9 % (9.6-15.2)
[2021-03-21 04:46] LABS: ALKALINE PHOSPHATASE 79 U/L (45-117); BILIRUBIN,TOTAL 0.4 mg/dL (0.2-1.0)
[2021-03-21] MEDS: NYSTATIN 500,000 UNITS/5 ML UDC PO SCH ×4 (06:36→21:26)
[2021-03-21] MEDS: FUROSEMIDE 40 MG/4 ML IV SCH ×2 (06:36→17:32)
[2021-03-21] MEDS: ONDANSETRON ODT 4 MG PO PRN ×2 (06:36→23:24)
[2021-03-21] MEDS: INSULIN LISPRO 100 UNITS/ML, PEN SQ-INSULIN SCH ×4 (07:00→21:32)
[2021-03-21 07:30] VITALS: BP 149/66
[2021-03-21] MEDS: ALBUTEROL/IPRATROPIUM 2.5MG/0.5MG, 3 ML NEB SCH ×4 (07:40→19:25)
[2021-03-21] MEDS: SENNA/DOCUSATE TABLET PO SCH (07:57)
[2021-03-21] MEDS: LEVOTHYROXINE 175 MCG TABLET PO SCH (07:57)
[2021-03-21] MEDS: OMEPRAZOLE 20 MG CAPSULE.DR PO SCH (07:57)
[2021-03-21] MEDS: METHOCARBAMOL 500 MG TABLET PO PRN (07:57)
[2021-03-21] MEDS ORDERED: ALBUTEROL SULFATE 2.5 MG/3 ML NPPB PRN (08:00)
[2021-03-21] MEDS: CEFTRIAXONE 1,000 MG in DEXTROSE 5% 50 ML IVPB SCH (08:26)
[2021-03-21] MEDS: AMLODIPINE 5 MG TABLET PO SCH (08:29)
[2021-03-21] MEDS ORDERED: TIOTROPIUM BROMIDE 18 MCG/INH INH SCH (09:00)
[2021-03-21 10:45] LABS: ANION GAP 7 mmol/L (5-15); CHLORIDE 83 mmol/L (98-107)
[2021-03-21 10:46] LABS: CREATININE 1.34 mg/dL (0.55-1.02)
[2021-03-21] MEDS ORDERED: LEVO175C2 PO (13:02)
[2021-03-21] MEDS ORDERED: NIFE-7 PO (13:02)
[2021-03-21] MEDS ORDERED: POTA10TA31 PO (13:02)
[2021-03-21 14:28] VITALS: BP 148/53
[2021-03-21 17:47] LABS: CREATININE 1.41 mg/dL (0.55-1.02)
[2021-03-21 18:11] LABS: CHLORIDE 84 mmol/L (98-107)
[2021-03-21 18:12] LABS: ANION GAP 5 mmol/L (5-15); CALCIUM 8.8 mg/dL (8.5-10.1)
[2021-03-21] MEDS ORDERED: BUDESONIDE 0.5 MG/2 ML INHA ONE (19:04)
[2021-03-21] MEDS: BUDESONIDE 0.5 MG/2 ML INHA NPPB SCH (19:26)
[2021-03-21 20:08] VITALS: BP 161/89
[2021-03-21] MEDS: ATORVASTATIN 10 MG TABLET PO SCH (21:24)
[2021-03-21] MEDS: INSULIN GLARGINE 100 UNITS/ML, PEN SQ-INSULIN SCH (21:32)
[2021-03-21 23:55] VITALS: BP 170/80
[2021-03-22 01:00] VITALS: BP 142/80
[2021-03-22] MEDS: OXYcodone/APAP 10/325MG TABLET PO PRN ×2 (03:54→07:58)
[2021-03-22 05:44] LABS: BASOPHILS % (AUTO) 1 % (0-1); EOSINOPHILS % (AUTO) 3 % (1-7); LYMPHOCYTES % (AUTO) 12 % (22-44); MEAN CORPUSCULAR HEMOGLOBIN 30.4 pg (27.0-34.8); MEAN PLATELET VOLUME 7.4 fL (7.4-10.4); MONOCYTES % (AUTO) 13 % (2-9); NEUTROPHILS % (AUTO) 71 % (42-75); PLATELET COUNT 390 x10^3/uL (130-400); RED CELL DISTRIBUTION WIDTH 14.7 % (9.6-15.2)
[2021-03-22 05:58] LABS: CALCIUM 9.2 mg/dL (8.5-10.1)
[2021-03-22 06:03] LABS: ALANINE AMINOTRANSFERASE 32 U/L (12-78); ALKALINE PHOSPHATASE 84 U/L (45-117); BILIRUBIN,TOTAL 0.4 mg/dL (0.2-1.0); CREATININE 1.24 mg/dL (0.55-1.02); TOTAL PROTEIN 6.6 g/dL (6.4-8.2)
[2021-03-22 06:09] LABS: ANION GAP 4 mmol/L (5-15); CHLORIDE 86 mmol/L (98-107)
[2021-03-22] MEDS: OMEPRAZOLE 20 MG CAPSULE.DR PO SCH (06:10)
[2021-03-22] MEDS: NYSTATIN 500,000 UNITS/5 ML UDC PO SCH (06:10)
[2021-03-22] MEDS: FUROSEMIDE 40 MG/4 ML IV SCH (06:10)
[2021-03-22] MEDS: LEVOTHYROXINE 175 MCG TABLET PO SCH (06:10)
[2021-03-22] MEDS: ALBUTEROL/IPRATROPIUM 2.5MG/0.5MG, 3 ML NEB SCH (06:11)
[2021-03-22] MEDS: CEFTRIAXONE 1,000 MG in DEXTROSE 5% 50 ML IVPB SCH (06:14)
[2021-03-22] MEDS: SENNA/DOCUSATE TABLET PO SCH (07:58)
[2021-03-22] MEDS: AMLODIPINE 5 MG TABLET PO SCH (07:58)
[2021-03-22] MEDS: METHOCARBAMOL 500 MG TABLET PO PRN (07:58)
[2021-03-22] MEDS: HEPARIN 5,000 UNITS/ML, 1ML SQ SCH (07:59)
[2021-03-22] MEDS: INSULIN LISPRO 100 UNITS/ML, PEN SQ-INSULIN SCH (08:18)
[2021-03-22 08:25] VITALS: BP 188/73
[2021-03-22] MEDS ORDERED: ALBUTEROL/IPRATROPIUM 2.5MG/0.5MG, 3 ML NEB PRN (08:30)
[2021-03-22] MEDS ORDERED: BUDESONIDE 0.5 MG/2 ML INHA NPPB PRN (08:30)
[2021-03-22] MEDS ORDERED: DULERA HOMEINH SCH (09:00)
[2021-03-22] MEDS ORDERED: POTA-143 PO (09:30)
[2021-03-22] MEDS ORDERED: CEFD300C37 PO (09:30)
[2021-03-22] MEDS ORDERED: TORS20TA2 PO (09:30)
[2021-03-22 10:22] VITALS: BP 185/77
[2021-03-22] MEDS ORDERED: niFEDipine ER 30 MG TABLET.ER ONE (10:35)
[2021-03-22] MEDS ORDERED: niFEDipine ER 30 MG TABLET.ER PO SCH (11:00)
== END 2021-03-22 13:43 | disposition home or self-care (01) | DRG 133 ==
LOC: ED 17:29 → 5SO 18:07
PROVIDERS: ADMIT Family Medicine; ATTEND Family Medicine
DX: J96.21 Acute and chronic respiratory failure with hypoxia (principal); I50.33 Acute on chronic diastolic (congestive) heart failure; B37.0 Candidal stomatitis; I27.20 Pulmonary hypertension, unspecified; Z20.822 Contact with and (suspected) exposure to COVID-19; D63.8 Anemia in other chronic diseases classified elsewhere; E66.2 Morbid (severe) obesity with alveolar hypoventilation; E87.1 Hypo-osmolality and hyponatremia; I13.0 Hypertensive heart and chronic kidney disease with heart failure and stage 1 through stage 4 chronic kidney disease, or unspecified chronic kidney disease; E11.22 Type 2 diabetes mellitus with diabetic chronic kidney disease; E78.5 Hyperlipidemia, unspecified; F11.20 Opioid dependence, uncomplicated; F17.200 Nicotine dependence, unspecified, uncomplicated; F41.9 Anxiety disorder, unspecified; D64.9 Anemia, unspecified; E03.9 Hypothyroidism, unspecified; G89.29 Other chronic pain; R94.6 Abnormal results of thyroid function studies; J44.0 Chronic obstructive pulmonary disease with (acute) lower respiratory infection; J44.1 Chronic obstructive pulmonary disease with (acute) exacerbation; N18.9 Chronic kidney disease, unspecified; Z68.35 Body mass index [BMI] 35.0-35.9, adult; Z79.899 Other long term (current) drug therapy; Z90.710 Acquired absence of both cervix and uterus; Z88.0 Allergy status to penicillin
CPT/HCPCS: 36415; 84145; 96374; 96375; 99291; J7626; 71045; 80048; 80053; 81001; 82010; 82800; 82962; 83036; 83605; 83735; 83880; 84100; 84300; 84439; 84443; 84484; 85025; 87040; 87086; 93005; 94640; G0378; J0696; J1644; J1940; J2405; Q0162; U0005; J1815; J2270; Q0177; U0003